=== PATIENT | male | born 1940 | race Caucasian/White ===

== ENCOUNTER → 2017-09-06 | Outpatient (CLI) | payer OTHER ==
[~2017-09-06] MED LIST: PROHANCE 279.3MG/ML 15ML VIAL (A9576) As Ordered ONE
[2017-09-06 14:21] LABS: BLOOD UREA NITROGEN 12 MG/DL (7-18); CREATININE FOR GFR 0.72 MG/DL (0.70-1.30); GLOMERULAR FILTRATION RATE > 60.0 (>42)
--- NOTE | 2017-09-06 16:05 | REP ---
MRI study of the brain and posterior fossa without and with IV gadolinium: History: Bilateral hearing loss, left greater than right. Gadolinium enhancement dose: 13 ml of intravenous ProHance. Technique: Axial and coronal imaging planes are utilized for T1 and T2-weighted scans. Sequences include spin-echo, fast spin echo, FLAIR, and diffusion weighted sequences. Coronal thin section axial and coronal pre- and postcontrast T1 and T2-weighted scans are included of the posterior fossa. MRI findings: There is no MR evidence of significant paranasal sinus disease. No intraorbital abnormality is observed. There is mild diffuse cerebral atrophy. There are scattered small vessel changes in the periventricular and subcortical white matter of the supratentorial brain. There is no evidence of intracranial hemorrhage, mass or infarction. Diffusion weighted scans show no evidence to suggest acute ischemia. Thin section axial T2-weighted scans demonstrate normal internal auditory canals bilaterally. No CP angle cistern mass lesion or other extra-axial mass lesion is seen. Seventh and eighth nerves in the IACs are seen and are unremarkable. Post contrast enhanced images show no evidence of abnormal intercanalicular or extra canalicular enhancement at either IAC. Enhancement is seen in normal vasculature. No abnormal intracranial enhancement is appreciated. Impression: Diffuse atrophy and mild small vessel changes. Otherwise negative MRI study of the brain and internal auditory canal posterior fossa. Signed by Piotr Oliver MD 09/07/2017 02:26 P
== END ==
LOC: M RAD 13:17
PROVIDERS: ATTEND Specialist
DX: H91.22 Sudden idiopathic hearing loss, left ear (principal)
CPT/HCPCS: 36415; 70553; 82565; 84520; A9576

== ENCOUNTER 2019-09-13 12:02 | Emergency (ER) | payer OTHER, MEDICARE ==
[~2019-09-13] VITALS: Ht 170.2 cm; Wt 42.5 kg
[2019-09-13] MEDS ORDERED: ACETAMINOPHEN TAB 650MG DOSE (2X325MG) PO ONE (12:15)
[2019-09-13] MEDS ORDERED: INCR1INH (12:16)
[2019-09-13] MEDS ORDERED: BREO1INH3 (12:16)
[2019-09-13] MEDS ORDERED: ALBU83IN (12:16)
[2019-09-13] MEDS ORDERED: LISI10TA4 (12:16)
--- NOTE | 2019-09-13 12:50 | REP ---
Five views lumbar spine: 09/13/2019. Indication: Low back pain. Comparison: None. Findings: There is no acute fracture, subluxation or dislocation. Levoscoliosis of the lumbar spine is present with the convexity centered at L1/L2. No lytic or blastic lesions are present. Bowel gas pattern is nonspecific. Impression: No acute osseous injuries of the lumbar spine. Electronically Signed by Quique Cloud DO 09/13/2019 12:41 P
--- NOTE | 2019-09-13 13:05 | REP ---
PELVIS AP: AP view of the pelvis is performed. There is no evidence of acute fracture, dislocation, or intrinsic bone disease. There are mild degenerative changes at the sacroiliac and hip joints bilaterally. IMPRESSION: No fracture or dislocation. Electronically Signed by Osmani Goyal MD 09/13/2019 01:47 P
[2019-09-13 13:43] VITALS: BP 129/76
== END 2019-09-13 14:08 | disposition home or self-care (01) ==
LOC: M ED 12:02
DX: S30.0XXA Contusion of lower back and pelvis, initial encounter (principal); W01.0XXA Fall on same level from slipping, tripping and stumbling without subsequent striking against object, initial encounter; Y92.9 Unspecified place or not applicable; Y93.9 Activity, unspecified; Z79.51 Long term (current) use of inhaled steroids; Z79.899 Other long term (current) drug therapy

== ENCOUNTER 2020-08-07 11:28 | Emergency (ER) | payer MEDICARE, OTHER ==
[~2020-08-07] VITALS: Ht 165.1 cm; Wt 61.7 kg
[~2020-08-07 11:28] MED LIST changes: +ALBU83IN NEB; +BREO1INH3; +INCR1INH INH; +LISI10TA4 PO; -PROHANCE 279.3MG/ML 15ML VIAL (A9576) As Ordered ONE
[2020-08-07] MEDS ORDERED: VITA50005 PO (11:49)
[2020-08-07] MEDS ORDERED: PRED10TA2 PO (11:49)
[2020-08-07] MEDS ORDERED: ADVA230A PO (11:49)
[2020-08-07 12:09] LABS: BASO # 0.1 10^3/uL (0.0-0.2); BASO % 0.4 % (0.0-1.0); HEMATOCRIT 45.7 % (42.0-52.0); HEMOGLOBIN 14.2 g/dl (13.5-17.5); LYMPH # 0.2 10^3/uL (1.5-5.0); LYMPH % 0.9 % (24.0-44.0); MEAN CORPUSCULAR HEMOGLOBIN 30.7 pg (27.0-33.0); MEAN CORPUSCULAR HGB CONC 31.1 g/dl (32.0-36.5); MEAN CORPUSCULAR VOLUME 98.7 fl (80.0-96.0); MONO # 0.9 10^3/uL (0.0-0.8); MONO % 4.2 % (0.0-5.0); NEUTROPHILS # 18.6 10^3/uL (1.5-8.5); NEUTROPHILS % 91.8 % (36.0-66.0); PLATELET COUNT, AUTOMATED 278 10^3/uL (150-450); RED BLOOD COUNT 4.63 10^6/uL (4.30-6.10); WHITE BLOOD COUNT 20.3 10^3/uL (4.0-10.0)
[2020-08-07 12:20] LABS: INR 0.92; PROTHROMBIN TIME 12.6 SECONDS (12.5-14.3)
[2020-08-07 12:21] LABS: PARTIAL THROMBOPLASTIN TIME 23.7 SECONDS (24.2-38.5)
[2020-08-07] MEDS ORDERED: APIXABAN 5 MG TAB (ELIQUIS) PO ONE (13:00)
--- NOTE | 2020-08-07 13:27 | REP ---
INDICATION: SOB. COMPARISON: Chest 11/14/2012, 02/16/2011 TECHNIQUE: AP seated chest FINDINGS: Two separate views to encompass the entirety of the chest utilized. The lungs are hyperinflated with diffuse underlying interstitial fibrotic change there is emphysematous change in the mid and upper lung zones but greatest in the left mid lung zone. There is irregular nodular scar in the left base in an area where there was an acute pneumonia on the 2013 exam. No interval studies available since that time. The pleural effusion and remainder of the infiltrate seen left lower lobe on the previous chest are resolved. Heart size borderline. The pulmonary arteries are prominent centrally consistent with pulmonary artery hypertension, presumably on the basis of COPD. There is pulmonary venous hypertension without darshan edema. Early interstitial edema is difficult to exclude in the setting of underlying fibrosis. The aorta is calcified at the arch and mildly tortuous. No free air under the diaphragm. Bones without acute finding. 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 There is irregular nodular lesion or scar adjacent to left heart border in area where there is extensive pneumonia in the left lower lobe in the 2013 exam. Effusion is resolved since that time as is most of the infiltrate appearance. Finding could represent scar or new lesion. Pulmonary artery hypertension, presumably on the basis of COPD. Borderline heart size. Pulmonary venous hypertension. No darshan edema. Interstitial edema difficult to exclude in the setting of fibrosis. <Electronically signed by Horacio Melendez > 08/07/20 [id number]
[2020-08-07 14:57] VITALS: BP 140/65
[2020-08-07] MEDS ORDERED: CART120C PO (15:49)
[2020-08-07] MEDS ORDERED: ELIQ5TAB PO (15:50)
[2020-08-07 16:14] VITALS: BP 121/73
[2020-08-08] MEDS ORDERED: CART120C PO (17:18)
[2020-08-08] MEDS ORDERED: ELIQ5TAB PO (17:18)
--- NOTE | 2020-08-09 05:09 | ECGEPIP ---
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
--- NOTE | 2020-08-09 05:11 | ECGEPIP ---
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
== END 2020-08-07 16:30 | disposition home or self-care (01) ==
LOC: M ED 11:28
DX: I48.91 Unspecified atrial fibrillation (principal); I10 Essential (primary) hypertension; J44.9 Chronic obstructive pulmonary disease, unspecified; Z79.899 Other long term (current) drug therapy; Z79.01 Long term (current) use of anticoagulants; Z87.891 Personal history of nicotine dependence

== ENCOUNTER 2020-08-08 14:55 | Inpatient (IN) | payer MEDICARE ==
[~2020-08-08] VITALS: Ht 165.1 cm; Wt 59.2 kg
[~2020-08-08 14:55] MED LIST changes: +ADVA230A PO; +CART120C PO; +ELIQ5TAB PO; +PRED10TA2 PO; +VITA50005 PO
[2020-08-08] MEDS ORDERED: methylPREDNISolone 125MG 2ML VIAL IV ONE (15:15)
--- NOTE | 2020-08-08 15:51 | REP ---
INDICATION: increased SOB. COMPARISON: Comparison chest x-ray August 07, 2020.. TECHNIQUE: Upright AP chest x-ray. FINDINGS: There is subtle asymmetric density in the right upper lobe distribution consistent with right upper lobe. Pneumonia early infiltrate there increased markings in the left base which improved the 09/14/2020 study. Pulmonary vasculature is cephalized. Heart size is borderline. IMPRESSION: New infiltrate right upper lobe distribution. Increased markings left base are somewhat improved from August 07, 2020. Borderline heart size and cephalization vasculature. <Electronically signed by Juancarlos Oliver > 08/08/20 [id number]
[2020-08-08 16:24] LABS: BASO # 0.1 10^3/uL (0.0-0.2); BASO % 0.4 % (0.0-1.0); HEMATOCRIT 40.7 % (42.0-52.0); HEMOGLOBIN 12.7 g/dl (13.5-17.5); LYMPH # 0.1 10^3/uL (1.5-5.0); LYMPH % 0.7 % (24.0-44.0); MEAN CORPUSCULAR HEMOGLOBIN 30.7 pg (27.0-33.0); MEAN CORPUSCULAR HGB CONC 31.2 g/dl (32.0-36.5); MEAN CORPUSCULAR VOLUME 98.3 fl (80.0-96.0); MONO # 0.4 10^3/uL (0.0-0.8); MONO % 2.2 % (0.0-5.0); NEUTROPHILS # 15.6 10^3/uL (1.5-8.5); NEUTROPHILS % 94.2 % (36.0-66.0); PLATELET COUNT, AUTOMATED 255 10^3/uL (150-450); RED BLOOD COUNT 4.14 10^6/uL (4.30-6.10); WHITE BLOOD COUNT 16.6 10^3/uL (4.0-10.0)
[2020-08-08] MEDS: COMBIVENT RESPIMAT 100-20MCG INHALER 4GM INH SCH ×3 (16:54→17:19)
[2020-08-08] MEDS ORDERED: CART120C PO (17:18)
[2020-08-08] MEDS ORDERED: ELIQ5TAB PO (17:18)
[2020-08-08] MEDS ORDERED: LEVALBUTEROL 1.25 MG/0.5 ML CONCENTRATE NEB INH PRN (19:00)
[2020-08-08] MEDS: ADVAIR HFA 230/21MCG INHALER INH SCH (20:00)
[2020-08-08] MEDS: LEVALBUTEROL 1.25 MG/0.5 ML CONCENTRATE NEB INH SCH (20:00)
[2020-08-08 20:32] LABS: CK-MB VALUE MASS 1.8 NG/ML (<3.6); CPK CREATINE PHOSPHOKINASE 42 U/L (39-308); MB/CK RELATIVE INDEX 4.29 (< OR =4); NT-PRO BNP 326 PG/ML (<450); TROPONIN I < 0.02 NG/ML (< 0.10)
--- NOTE | 2020-08-08 20:41 | HPEPDOC ---
[facility] Medical History & Physical Date of Admission Aug 08, 2020 Date of Service: Aug 08, 2020 History and Physical CHIEF COMPLAINT: Shortness of breath, cough x 1-2 weeks HISTORY OF PRESENT ILLNESS: 80-year-old with COPD, chronic hypoxic respiratory failure on 2 L home oxygen by nasal cannula presented with shortness of breath and nonproductive cough on and off for the past 1-2 wks,without fever, chills, chest pain, tightness, dizziness, lightheadedness, brbpr,hematemesis, black tarry stools, or sick contacts. He is usually able to walk 20-30 feet, now unable to go 10 feet due to DA SILVA despite useing his advair and incruse ellipta, and increasing his oxygen to 2.5 liters, and decreasing it back to 2liters when he rests and catches his breath. He denies any weight gain, and may have lost a few pounds,and also denies PND or orthopnea without any prior history of CAD/OK/CHF in the past. He was seen in the ER on 08/07/2020 and was found to have new atrial fibrillation with rapid ventricular rate of 104, patient was discharged from the emergency room with Delfino and Sharon . He now presents again with persistent wheezing and shortness of breath, cough productive of white sputum with low grade temp 100.Chest x-ray shows no acute infiltrate, but vascular cephalization. ABG shows acute on chronic respiratory acidosis, pH of 7.3, PCO2 57, hospitalist was asked to admit for acute COPD exacerbation per Dr. Alejandro's recommendations. He remains in Afib but rate controlled at 94. PAST MEDICAL HISTORY: . Hypertension, new atrial fibrillation, COPD, chronic hypoxic respiratory failure in 2 L of oxygen PAST SURGICAL HISTORY: , Hernia repair, hemorrhoidectomy SOCIAL HISTORY: , Retired, former smoker,1ppd x 30 years, worked in [employer]. hcp dnr dni emergency contact [phone] denies alcohol abuse or recreational drug use FAMILY HISTORY: father age 76 "chest" cancer mother age 94 heart problems ALLERGIES: Please see below. REVIEW OF SYSTEMS: 10 point review of systems negative aside from positive findings on history of present illness HOME MEDICATIONS: Please see below. PHYSICAL EXAMINATION: VITAL SIGNS: See below GENERAL APPEARANCE: No acute respiratory distress. No conversational dyspnea, or use of respiratory accessory muscles. No tripod positioning. No pallor, no icterus or jaundice. Able to speak in full sentences HEENT: Pupils equally round, reactive to light and accommodation. Extra muscles are intact. Normocephalic, atraumatic. No jugular venous distention. No thyromegaly or cervical lymphadenopathy. Moist mucous membranes. Face is symmetric. Tongue is midline. No pharyngeal erythema or tonsillar exudates. no stridor. no tracheal deviation CARDIOVASCULAR: S1, S2, irregularly irregular. Nondisplaced point of maximal impulse LUNGS: Diminished breath sounds. Air entry is equal bilaterally. Prolonged expirations, bilateral wheezing ABDOMEN: Soft, nontender, nondistended, positive bowel sounds in 4 quadrants. No hepatosplenomegaly. No abdominal bruit. No fluid wave. No CVA tenderness EXTREMITIES: No cyanosis, clubbing or pitting edema LABORATORY DATA: See below. IMAGING: Upright AP chest x-ray. FINDINGS: There is subtle asymmetric density in the right upper lobe distribution consistent with right upper lobe. Pneumonia early infiltrate there increased markings in the left base which improved the 09/14/2020 study. Pulmonary vasculature is cephalized. Heart size is borderline. IMPRESSION: New infiltrate right upper lobe distribution. Increased markings left base are somewhat improved from August 07, 2020. Borderline heart size and cephalization vasculature. <Electronically signed by Juancarlos Oliver > 08/08/20 154 DD: Piotr Oliver MD 08/08/20 154 DT: JAIME 08/08/201546 MICROBIOLOGY: Please see below. ASSESSMENT/PLAN: 80-year-old with COPD, chronic hypoxic respiratory failure on 2 L home oxygen by nasal cannula presented with shortness of breath and nonproductive cough on and off for the past 1-2 wks,without fever, chills, chest pain, tightness, dizziness, lightheadedness, brbpr,hematemesis, black tarry stools, or sick contacts. He is usually able to walk 20-30 feet, now unable to go 10 feet due to DA SILVA despite useing his advair and incruse ellipta, and increasing his oxygen to 2.5 liters, and decreasing it back to 2liters when he rests and catches his breath. He denies any weight gain, and may have lost a few pounds,and also denies PND or orthopnea without any prior history of CAD/OK/CHF in the past. He was seen in the ER on 08/07/2020 and was found to have new atrial fibrillation with rapid ventricular rate of 104, patient was discharged from the emergency room with Eliquis and Cardizem . He now presents again with persistent wheezing and shortness of breath, cough productive of white sputum with low grade temp 100.Chest x-ray shows no acute infiltrate, but vascular cephalization. ABG shows acute on chronic respiratory acidosis, pH of 7.3, PCO2 57, hospitalist was asked to admit for acute COPD exacerbation per Dr. Alejandro's recommendations. He remains in Afib but rate controlled at 94. He will be admitted as an inpatient for two midnights. Acute COPD exacerbation -Patient will be admitted to medical surgical floor telemetry. Cardiac markers will be cycled every 6 hourly. EKG shows atrial fibrillation but rate controlled. He has been given Solu-Medrol 125 mg intravenously in the emergency room. We'll continue with Solu-Medrol every 6 hourly. Doxycycline 100 every 12 hourly due to history of atrial fibrillation. Albuterol will not be resumed. Patient will be placed on Xopenex to decrease risk of tachycardia. Chest x-ray shows no acute infiltrate Acute on Chronic hypoxic respiratory failure. 2 L oxygen dependent by nasal cannula -Due to acute COPD exacerbation as well as fluid overload with chest x-ray showing cephalization. Continuous supplemental oxygen. Titrate if needed to continue with that goal saturation of 80-92%. Gentle diuresis and continue with Solu-Medrol, antibiotics and nebulizer treatments for COPD exacerbation Chronic hypercarbia/acute on chronic respiratory acidosis -No acute indication for BiPAP. . Continue with treatment for COPD exacerbation and gentle diuresis. No confusion Will monitor from lethargy. If patient develops acute mental status changes. We will recheck arterial blood gas to rule out worsening respiratory acidosis Remote history of tobacco abuse -Quit tobacco abuse New onset atrial fibrillation, rate controlled -Continue with L Aquinas and Cardizem -echo ordered Abnormal CXR -cephalization, with possible new onset chf. clinical exam was not impressive and had no jvd, rales, or LE edema. trial of lasix x 1 dose. check echo and bnp. Diet 2 g sodium diet CODE STATUS DNR DNI MOLST SIGNED. [facility] [id number] DVT prophylaxis on Eliquis Vital Signs Vital Signs Date Time Temp Pulse Resp B/P (MAP) Pulse Ox O2 Delivery O2 Flow Rate FiO2 08/08/20 16:49 Nasal Cannula 2.0 08/08/20 16:49 08/08/20 14:55 97.3 94 28 92 Laboratory Data Labs 24H Laboratory Tests 2 08/08/20 15:30: POC pH (Misc Panel) 7.387, POC Base Excess (Misc Panel) 7.0H, POC Saturated Percent O2 (Misc) 98, POC pO2 (Misc Panel) 109.0H, POC pCO2 (Misc Panel) 53.4H, POC HCO3 (Misc Panel) 32.1H, POC Total CO2 (Misc Panel) 34.0H 08/08/20 16:10: Immature Granulocyte % (Auto) 2.5, Neutrophils (%) (Auto) 94.2H, Lymphocytes (%) (Auto) 0.7L, Monocytes (%) (Auto) 2.2, Eosinophils (%) (Auto) 0.0, Basophils (%) (Auto) 0.4, Neutrophils # (Auto) 15.6H, Lymphocytes # (Auto) 0.1L, Monocytes # (Auto) 0.4, Eosinophils # (Auto) 0.0, Basophils # (Auto) 0.1, Nucleated Red Blood Cells % (auto) 0.0 CBC/BMP Laboratory Tests 08/08/20 16:10 Microbiology Microbiology 08/08/20 Respiratory Virus Panel (PCR) (JOCELYNE) - Final, Complete 08/08/20 Blood Culture, Received Pending 08/08/20 Blood Culture, Received Pending Home Medications Scheduled Apixaban (Eliquis) 5 Mg Tablet, 5 MG PO BID Diltiazem HCl (Cartia Xt) 120 Mg Cap.er.24h, 120 MG PO DAILY Ergocalciferol (Vitamin D2) (Vitamin D2) 50,000 Units Cap, 1 CAP PO 1XWK WEDNESDAYS Fluticasone Propion/Salmeterol (Advair Hfa 230-21 Mcg Inhaler) 12 Gm Hfa.aer.ad, 2 PUFFS PO BID Lisinopril (Lisinopril) 10 Mg Tablet, 10 MG PO DAILY Prednisone (Prednisone) 10 Mg Tablet, 10 MG PO DAILY Umeclidinium [place] (Incruse Ellipta) 62.5 Mcg Blst.w.dev, 1 PUFF INH DAILY Scheduled PRN Albuterol Sulf (Albuterol Sulfate) 2.5 Mg/3 Ml Vial.neb, 1 VIAL NEB Q4H PRN for SOB/WHEEZING Allergies Coded Allergies: No Known Allergies (Unverified , 09/13/19) A-FIB/CHADSVASC A-FIB History Current/History of A-Fib/PAF?: Yes Current PO Anticoag Therapy: Yes Age/Risk Factor Scoring CHADSVASC: CHADSVASC Response (Comments) Value Gender Risk Factor Male 0 Hx of CHF No 0 Hx of HTN Yes 1 Hx of Stroke/TIA/or VTE No 0 Hx of Diabetes No 0 Hx of Vascular Disease No 0 Total 1 Treatment Treatment ordered: Apixaban BELLE DACOSTA MD Aug 08, 2020 19:25
[2020-08-08] MEDS ORDERED: FUROSEMIDE 40MG/4ML VIAL (J1940) IV ONE (20:45)
[2020-08-08] MEDS: DOXYCYCLINE HYCLATE 100 MG in D5W MINI-BAG PLUS 100 ML IV SCH (22:52)
[2020-08-08] MEDS: APIXABAN 5 MG TAB (ELIQUIS) PO SCH (22:52)
[2020-08-09 01:01] VITALS: BP 138/60
[2020-08-09] MEDS: LEVALBUTEROL 1.25 MG/0.5 ML CONCENTRATE NEB INH SCH ×5 (03:25→15:08)
--- NOTE | 2020-08-09 05:11 | ECGEPIP ---
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
[2020-08-09 06:00] VITALS: BP 124/80
[2020-08-09 07:23] LABS: BASO % 0.2 % (0.0-1.0); HEMATOCRIT 40.2 % (42.0-52.0); HEMOGLOBIN 12.8 g/dl (13.5-17.5); LYMPH # 0.1 10^3/uL (1.5-5.0); LYMPH % 1.3 % (24.0-44.0); MEAN CORPUSCULAR HEMOGLOBIN 31.4 pg (27.0-33.0); MEAN CORPUSCULAR HGB CONC 31.8 g/dl (32.0-36.5); MEAN CORPUSCULAR VOLUME 98.5 fl (80.0-96.0); MONO # 0.3 10^3/uL (0.0-0.8); MONO % 2.3 % (0.0-5.0); NEUTROPHILS # 10.3 10^3/uL (1.5-8.5); NEUTROPHILS % 93.9 % (36.0-66.0); PLATELET COUNT, AUTOMATED 238 10^3/uL (150-450); RED BLOOD COUNT 4.08 10^6/uL (4.30-6.10); WHITE BLOOD COUNT 10.9 10^3/uL (4.0-10.0)
[2020-08-09] MEDS: ADVAIR HFA 230/21MCG INHALER INH SCH (07:34)
[2020-08-09 07:35] LABS: BLOOD UREA NITROGEN 29 MG/DL (7-18); CALCIUM LEVEL 8.3 MG/DL (8.8-10.2); CARBON DIOXIDE LEVEL 36 MEQ/L (21-32); CHLORIDE LEVEL 99 MEQ/L (98-107); CREATININE FOR GFR 0.71 MG/DL (0.70-1.30); GLOMERULAR FILTRATION RATE > 60.0 (>42); GLUCOSE, FASTING 119 MG/DL (70-100); MAGNESIUM LEVEL 2.1 MG/DL (1.8-2.4); POTASSIUM SERUM 4.3 MEQ/L (3.5-5.1); SODIUM LEVEL 141 MEQ/L (136-145)
[2020-08-09] MEDS: DOXYCYCLINE HYCLATE 100 MG in D5W MINI-BAG PLUS 100 ML IV SCH (08:42)
[2020-08-09] MEDS: APIXABAN 5 MG TAB (ELIQUIS) PO SCH (08:42)
[2020-08-09 08:45] VITALS: BP 120/63
[2020-08-09] MEDS ORDERED: lisinopriL 10 MG TAB PO SCH (09:00)
[2020-08-09] MEDS ORDERED: DOXY-350 PO (12:40)
[2020-08-09] MEDS ORDERED: PRED20TA PO (12:40)
--- NOTE | 2020-08-09 12:57 | DS.PDOC ---
Discharge Summary General Date of Admission Aug 08, 2020 at 19:07 Date of Discharge 08/09/2019 Discharge Summary PROCEDURES PERFORMED DURING STAY: [None]. ADMITTING DIAGNOSES: 1. Acute COPD exacerbation 2. Acute on chronic hypoxic respiratory failure 3. Acute on chronic respiratory acidosis 4. Smoker 5. New onset atrial fibrillation, rate controlled DISCHARGE DIAGNOSES: 1. Acute COPD exacerbation 2. Acute on chronic hypoxic respiratory failure 3. Acute on chronic respiratory acidosis 4. Smoker 5. New onset atrial fibrillation, rate controlled 6. Community acquired pneumonia COMPLICATIONS/CHIEF COMPLAINT: Copd With Acute Exacerbation. HISTORY OF PRESENT ILLNESS: 80-year-old with COPD, chronic hypoxic respiratory failure on 2 L home oxygen by nasal cannula presented with shortness of breath and nonproductive cough on and off for the past 1-2 wks,without fever, chills, chest pain, tightness, dizziness, lightheadedness, brbpr,hematemesis, black tarry stools, or sick contacts. He is usually able to walk 20-30 feet, now unable to go 10 feet due to DA SILVA despite useing his advair and incruse ellipta, and increasing his oxygen to 2.5 liters, and decreasing it back to 2liters when he rests and catches his breath. He denies any weight gain, and may have lost a few pounds,and also denies PND or orthopnea without any prior history of CAD/[place]/CHF in the past. He was seen in the ER on 08/07/2020 and was found to have new atrial fibrillation with rapid ventricular rate of 104, patient was discharged from the emergency room with Eliquis and Cardizem . He now presents again with persistent wheezing and shortness of breath, cough productive of white sputum with low grade temp 100.Chest x-ray shows no acute infiltrate, but vascular cephalization. ABG shows acute on chronic respiratory acidosis, pH of 7.3, PCO2 57, hospitalist was asked to admit for acute COPD exacerbation per Dr. Alejandro's recommendations. He remains in Afib but rate controlled at 94. HOSPITAL COURSE: Patient was admitted for event of acute COPD exacerbation. He was given Solu-Medrol 80 mg every 6 hours as well as doxycycline 100 mg every 12 hours. He was given Xopenex to decrease risk of tachycardia. Chest x-ray showed showed a subtle right upper lobe infiltrate, as well as possibly increased vascular markings, and therefore was given one dose of Lasix 40 mg IV. Patient's BNP was within normal limits. He had no signs of fluid overload on physical examination. Blood cultures preliminary negative. Patient was resumed on his home oxygen of 2 L, saturated above 92%. Although EKG showed atrial fibrillation he was rate controlled with Cardizem. Echocardiogram was performed. Results will follow up as outpatient. On, discharge he was not dyspneic or tachypneic. He was instructed to complete a course of doxycycline as well as prednisone 40 mg for 7 days. He was instructed to follow up with his primary care doctor within 3-5 days. DISCHARGE MEDICATIONS: Please see below. ALLERGIES: Please see below. PHYSICAL EXAMINATION ON DISCHARGE: VITAL SIGNS: please see below General: NAD, comfortable HEENT: PERRLA, EOMI, sclerae clear, nasal cannula in place Neck: supple, normal ROM, no JVD Respiratory: lungs CTAB, reduced air entry bilaterally, no wheeze, no rales, no crackles CVS: RRR, normal S1, S2, no murmurs Abdo: soft, no masses, no hepatosplenomegaly, BS+, no rebound tenderness Extremities: no edema, pulses 2+ MSK: no joint deformities, normal ROM Neuro: no focal neuro deficits, moving all 4 extremities, CN2-12 intact. Strength 5/5 in all 4 extremities. No nystagmus. Psych: calm, cooperative, AAO x 3 LABORATORY DATA: Please see below. IMAGING: CXR 08/08/20 New infiltrate right upper lobe distribution. Increased markings left base are somewhat improved from August 07, 2020. Borderline heart size and cephalization vasculature. PROGNOSIS: good ACTIVITY: [As tolerated]. DIET: 2g Na DISCHARGE PLAN: Exertional with home oxygen. PCP and pulmonology follow-up. Complete course of prednisone 40 mg for 7 days thereafter, resume 10 mg by mouth daily. Complete course of doxycycline for 7 days. DISCHARGE INSTRUCTIONS: Issues instructions. ITEMS TO FOLLOWUP ON ON OUTPATIENT: Final blood cultures from 08/08/20 DISCHARGE CONDITION: [Stable]. TIME SPENT ON DISCHARGE: 35 minutes Vital Signs/I&Os Vital Signs Date Time Temp Pulse Resp B/P (MAP) Pulse Ox O2 Delivery O2 Flow Rate FiO2 08/09/20 08:50 2.0 08/09/20 08:46 74 08/09/20 08:45 120/63 11/14/20 06:00 97.0 20 93 Nasal Cannula I&O- Last 24 Hours up to 6 AM 08/09/20 06:00 Intake Total 100 ml Output Total 550 ml Balance -450 ml Laboratory Data Labs 24H Laboratory Tests 2 08/08/20 15:30: POC pH (Misc Panel) 7.387, POC Base Excess (Misc Panel) 7.0H, POC Saturated Percent O2 (Misc) 98, POC pO2 (Misc Panel) 109.0H, POC pCO2 (Misc Panel) 53.4H, POC HCO3 (Misc Panel) 32.1H, POC Total CO2 (Misc Panel) 34.0H 08/08/20 16:10: Immature Granulocyte % (Auto) 2.5, Neutrophils (%) (Auto) 94.2H, Lymphocytes (%) (Auto) 0.7L, Monocytes (%) (Auto) 2.2, Eosinophils (%) (Auto) 0.0, Basophils (%) (Auto) 0.4, Neutrophils # (Auto) 15.6H, Lymphocytes # (Auto) 0.1L, Monocytes # (Auto) 0.4, Eosinophils # (Auto) 0.0, Basophils # (Auto) 0.1, Nucleated Red Blood Cells % (auto) 0.0 08/08/20 19:52: Total Creatine Kinase 42, Creatine Kinase MB 1.8, Creatine Kinase MB Relative Index 4.29H, Troponin I < 0.02, ZJ-Ddy-Z-Type Natriuretic Peptide 326 08/09/20 06:42: Immature Granulocyte % (Auto) 2.3, Neutrophils (%) (Auto) 93.9H, Lymphocytes (%) (Auto) 1.3L, Monocytes (%) (Auto) 2.3, Eosinophils (%) (Auto) 0.0, Basophils (%) (Auto) 0.2, Neutrophils # (Auto) 10.3H, Lymphocytes # (Auto) 0.1L, Monocytes # (Auto) 0.3, Eosinophils # (Auto) 0.0, Basophils # (Auto) 0.0, Nucleated Red Blood Cells % (auto) 0.0, Anion Gap 6L, Glomerular Filtration Rate > 60.0, Calcium Level 8.3L, Magnesium Level 2.1 CBC/BMP Laboratory Tests 08/08/20 16:10 08/09/20 06:42 Microbiology Microbiology 08/08/20 Respiratory Virus Panel (PCR) (JOCELYNE) - Final, Complete 08/08/20 Blood Culture, Received Pending 08/08/20 Blood Culture, Received Pending Discharge Medications Scheduled Apixaban (Eliquis) 5 Mg Tablet, 5 MG PO BID, (Reported) Diltiazem HCl (Cartia Xt) 120 Mg Cap.er.24h, 120 MG PO DAILY, (Reported) Doxycycline Monohydrate (Doxycycline) 100 Mg Capsule, 100 MG PO BID Ergocalciferol (Vitamin D2) (Vitamin D2) 50,000 Units Cap, 1 CAP PO 1XWK, (Reported) WEDNESDAYS Fluticasone Propion/Salmeterol (Advair Hfa 230-21 Mcg Inhaler) 12 Gm Hfa.aer.ad, 2 PUFFS PO BID, (Reported) Lisinopril (Lisinopril) 10 Mg Tablet, 10 MG PO DAILY, (Reported) Prednisone (Prednisone) 10 Mg Tablet, 10 MG PO DAILY, (Reported) Prednisone (Prednisone) 20 Mg Tablet, 40 MG PO DAILY Umeclidinium [place] (Incruse Ellipta) 62.5 Mcg Blst.w.dev, 1 PUFF INH DAILY, ( Reported) Scheduled PRN Albuterol Sulf (Albuterol Sulfate) 2.5 Mg/3 Ml Vial.neb, 1 VIAL NEB Q4H PRN for SOB/WHEEZING, (Reported) Allergies Coded Allergies: No Known Allergies (Unverified , 09/13/19) ANAIS FLOWERS MD Aug 09, 2020 12:57
[2020-08-09 14:31] VITALS: BP 115/50
[2020-08-09] MEDS ORDERED: methylPREDNISolone 125MG 2ML VIAL IV SCH (18:00)
--- NOTE | 2020-08-11 12:16 | ECHO ---
DATE OF PROCEDURE: 08/09/2020 Age: 80 Gender: Male Height: 162 cm Weight: 59 kg REFERRING PHYSICIAN: Dr. Fierro INDICATION: Dyspnea, atrial fibrillation, COPD. MEASUREMENTS: Aorta 3.1 LA 3.4 RV 2.2 IVS 0.8 LV 4.8 LVPW 0.8 IVC 1.5 Mitral E wave velocity 80, A wave 45 E prime septal 7.7 E prime lateral 14.3 FINDINGS: The study is of acceptable technical quality. The patient is in sinus rhythm with frequent ectopic beats. Left ventricle is normal size and normal systolic function, estimated ejection fraction approximately 60% to 65%. I do not appreciate any segmental wall motion abnormalities. Right ventricle also normal size and systolic function. Both atria appear at least mildly enlarged. Aortic valve is tricuspid and has preserved mobility. Mitral and tricuspid valves also appear normal. Pulmonic valve was not well visualized. No pericardial effusion is present. Inferior vena cava is normal size and appropriately collapses with inspiration indicative of normal central venous pressure. Aortic root is normal. Aortic arch and abdominal aorta were not well seen. Doppler interrogation reveals competent aortic valve, trace mitral insufficiency and mild tricuspid insufficiency. Calculated pulmonary artery pressure is in the low 40s corresponding to moderate pulmonary hypertension. Mitral inflow pattern and tissue Doppler imaging of mitral annulus revealed likely normal diastolic dysfunction. CONCLUSIONS: 1. Study is of acceptable technical quality, underlying sinus rhythm with frequent ectopic beats. 2. Normal LV size with normal LV systolic and diastolic function. 3. No hemodynamically significant valvular disease. 4. Likely normal central venous pressure but moderate pulmonary hypertension. MTDD
== END 2020-08-09 19:05 | disposition home or self-care (01) | DRG 190 ==
LOC: M ED 14:55 → M ED INP 19:07 → ENRESERV 22:40 → M MSPAV 08-09 01:00
PROVIDERS: ADMIT General Practice; ATTEND Family Medicine
DX: J44.0 Chronic obstructive pulmonary disease with (acute) lower respiratory infection (principal); J96.21 Acute and chronic respiratory failure with hypoxia; J18.9 Pneumonia, unspecified organism; E87.2 Acidosis; I48.91 Unspecified atrial fibrillation; J44.1 Chronic obstructive pulmonary disease with (acute) exacerbation; Z99.81 Dependence on supplemental oxygen; Z87.891 Personal history of nicotine dependence; Z20.828 Contact with and (suspected) exposure to other viral communicable diseases; Z79.01 Long term (current) use of anticoagulants; Z79.52 Long term (current) use of systemic steroids; Z79.899 Other long term (current) drug therapy

== ENCOUNTER 2020-09-29 16:50 | Inpatient (IN) | payer MEDICARE ==
[~2020-09-29] VITALS: Ht 165.1 cm; Wt 57.5 kg
[~2020-09-29 16:50] MED LIST changes: +DOXY-350 PO; +PRED20TA PO
[2020-09-29] MEDS ORDERED: PRED10PA PO (17:27)
[2020-09-29] MEDS ORDERED: COMBIVENT RESPIMAT 100-20MCG INHALER 4GM INH ONE (18:00)
[2020-09-29 18:18] LABS: ABG pH (ARTERIAL) 7.486 UNITS (7.350-7.450)
[2020-09-29 18:19] LABS: ABG BASE EXCESS 10.2 (-2.0-2.0); ABG HCO3 34.8 MEQ/L (22.0-26.0); ABG PARTIAL PRESSURE CO2 47.2 mmHg (35.0-45.0); ABG PARTIAL PRESSURE O2 104.2 mmHg (75.0-100.0); ABG TOTAL CO2 36.3 MEQ/L (23.0-31.0)
[2020-09-29 18:29] LABS: BASO % 0.6 % (0.0-1.0); HEMATOCRIT 34.1 % (42.0-52.0); HEMOGLOBIN 10.6 g/dl (13.5-17.5); LYMPH # 0.1 10^3/uL (1.5-5.0); MEAN CORPUSCULAR HEMOGLOBIN 30.5 pg (27.0-33.0); MEAN CORPUSCULAR HGB CONC 31.1 g/dl (32.0-36.5); MONO # 0.4 10^3/uL (0.0-0.8); MONO % 6.3 % (0.0-5.0); NEUTROPHILS # 5.9 10^3/uL (1.5-8.5); NEUTROPHILS % 86.4 % (36.0-66.0); PLATELET COUNT, AUTOMATED 245 10^3/uL (150-450); RED BLOOD COUNT 3.48 10^6/uL (4.30-6.10); WHITE BLOOD COUNT 6.8 10^3/uL (4.0-10.0)
[2020-09-29 18:54] LABS: INR 1.3; PROTHROMBIN TIME 16.5 SECONDS (12.5-14.3)
[2020-09-29 18:55] LABS: PARTIAL THROMBOPLASTIN TIME 30.1 SECONDS (24.2-38.5)
[2020-09-29 18:58] LABS: ALBUMIN 2.7 GM/DL (3.2-5.2); ALT/SGPT 37 U/L (12-78); BILIRUBIN,DIRECT 0.2 MG/DL (0.0-0.2); BILIRUBIN,TOTAL 0.5 MG/DL (0.2-1.0); BLOOD UREA NITROGEN 32 MG/DL (7-18); CALCIUM LEVEL 8.7 MG/DL (8.8-10.2); CARBON DIOXIDE LEVEL 39 MEQ/L (21-32); CHLORIDE LEVEL 93 MEQ/L (98-107); CK-MB VALUE MASS 1.2 NG/ML (<3.6); CPK CREATINE PHOSPHOKINASE 26 U/L (39-308); CREATININE FOR GFR 0.96 MG/DL (0.70-1.30); FREE T4 1.32 NG/DL (0.76-1.46); GLOMERULAR FILTRATION RATE > 60.0 (>42); GLUCOSE, FASTING 122 MG/DL (70-100); MB/CK RELATIVE INDEX 4.62 (< OR =4); NT-PRO BNP 779 PG/ML (<450); POTASSIUM SERUM 4.1 MEQ/L (3.5-5.1); SODIUM LEVEL 135 MEQ/L (136-145); THYROID STIMULATING HORMONE 0.229 uIU/ML (0.358-3.740); TOTAL PROTEIN 6.1 GM/DL (6.4-8.2); TROPONIN I < 0.02 NG/ML (< 0.10)
[2020-09-29] MEDS ORDERED: IPRATROPIUM 0.5MG/ALBUTEROL 2.5MG INH SOL UD 3ML (DUONEB) NEB ONE ×2 (19:30→21:15)
--- NOTE | 2020-09-29 20:05 | REP ---
INDICATION: SOB. COMPARISON: 08/08/2020 TECHNIQUE: PA and lateral views FINDINGS: Once again, the lung wilson are hyperexpanded. Fibrotic changes are seen throughout the lung wilson status quo. No acute patchy parenchymal opacities or pleural effusions have developed. IMPRESSION: Stable appearing chronic changes without evidence of acute cardiopulmonary disease. Correlate clinically to rule out the possibility of acute disease superimposed upon chronic change. <Electronically signed by Vikram Huang > 09/29/202000
[2020-09-29] MEDS ORDERED: FURO40TA2 PO (22:37)
[2020-09-29] MEDS ORDERED: VITA50005 PO (22:37)
[2020-09-29] MEDS ORDERED: NYST50SS SSP (22:37)
[2020-09-29] MEDS ORDERED: POTA10TA16 PO (22:37)
[2020-09-29] MEDS ORDERED: PRED10TA2 PO (22:37)
[2020-09-29] MEDS ORDERED: DILT240C83 PO (22:37)
--- NOTE | 2020-09-29 23:54 | HPEPDOC ---
[facility] Medical History & Physical Date of Admission Sep 29, 2020 Date of Service: Sep 29, 2020 History and Physical CHIEF COMPLAINT: Shortness of breath HISTORY OF PRESENT ILLNESS: 80-year-old male history of COPD and A. fib who was sent to the emergency department by his home extension agent Dr. Alejandro after being found to be desaturating to the 80s in the clinic during his visit today. Patient has COPD and is on baseline 2 L of oxygen at home and had to be increased to [address] Alejandro in the clinic and saturated to around 85%. In the emergency department patient received nebulized treatments with improvement in his wheezing and relief reported by the patient for shortness of breath he is saturating at the time he was seen at 92% on 2 L of oxygen. When I saw the patient in the emergency department he tells me he is feeling much better and is no longer short of breath and wheezing is minimal. Patient agrees to be admitted to the hospital for management of his COPD exacerbation. In the emergency department patient was found to have A. fib with a rapid response heart rate between 100 -120 but at times reaching higher. Patient unsure if he is compliant fully with medications at home. He lives home with his . Patient will be admitted to medical floor with telemetry monitoring for his A. fib. Patient denies any chest pain or palpitations he denies abdominal pain denies currently having shortness of breat h. PAST MEDICAL HISTORY: COPD with chronic hypoxic respiratory failure on 2 L oxygen at home Atrial fibrillation Hypertension PAST SURGICAL HISTORY: Hemorrhoidectomy Hernia repair SOCIAL HISTORY: Denies alcohol use Denies tobacco use actively tells me he quit 20 years ago but has a [id number]-dctp history Denies illicit drug use His is his healthcare proxy [phone] patient reinforces his DNR/DNI status FAMILY HISTORY: Reviewed and none contributory to this admission ALLERGIES: Please see below. REVIEW OF SYSTEMS: 10 point review of systems complete all negative otherwise stated in HPI HOME MEDICATIONS: Please see below. PHYSICAL EXAMINATION: Constitutional: Awake and alert, in no apparent distress ENT: Sclera are clear Respiratory: Lungs show diffuse mild wheezing bilaterally with diminished lung sounds. No respiratory distress. No use of accessory muscles. On 2 L of oxygen by [place] Cardiovascular: Irregular heart rate. Tachycardia. Cannot appreciate murmurs. Gastrointestinal: Abdomen is soft, non distended, non tender, BS present. Musculoskeletal: No lower extremity edema. Neurologic: No focal neurological deficit. Mental Status: A&O x3, normal affect Skin: Warm, dry LABORATORY DATA: See below. IMAGING: See chart MICROBIOLOGY: Please see below. ASSESSMENT/PLAN 80-year-old male history of COPD and A. fib who was sent to the emergency department by his home extension agent Dr. Alejandro after being found to be desaturating to the 80s in the clinic during his visit today. Admitted for management of acute on chronic COPD exacerbation and atrial fibrillation with RVR. # Acute on chronic hypoxic respiratory failure secondary to COPD exacerbation: DuoNeb's scheduled and when necessary. Continue home prednisone 10 mg daily, clinically improved with minimal wheezing and back to 2 L of oxygen will hold off on extra steroids for now. Titrate oxygen with goal of 88-92%. # Atrial fibrillation with RVR: Currently heart rate 102. questionable compliance with medications. Continue home Cardizem and eliquis. Monitor on telemetry. # Hypertension: Currently normotensive hold home meds. Monitor and titrate # DVT prophylaxis: fred Shirley Hospitalist Vital Signs Vital Signs Date Time Temp Pulse Resp B/P (MAP) Pulse Ox O2 Delivery O2 Flow Rate FiO2 09/29/20 22:17 145 111/56 09/29/20 21:28 98.1 09/29/20 21:15 18 97 Nasal Cannula 2.0 Laboratory Data Labs 24H Laboratory Tests 2 09/29/20 17:04: Prothrombin Time 16.5H, Prothromb Time International Ratio 1.30, Activated Partial Thromboplast Time 30.1, Anion Gap 3L, Glomerular Filtration Rate > 60.0, Calcium Level 8.7L, Total Bilirubin 0.5, Direct Bilirubin 0.2, Aspartate Amino Transf (AST/SGOT) 17, Alanine Aminotransferase (ALT/SGPT) 37, Alkaline Phosphatase 150H, Total Creatine Kinase 26L, Creatine Kinase MB 1.2, Creatine Kinase MB Relative Index 4.62H, Troponin I < 0.02, DK-Cfp-X-Type Natriuretic Peptide 779H, Total Protein 6.1L, Albumin 2.7L, Albumin/Globulin Ratio 0.8, Thyroid Stimulating Hormone (TSH) 0.229L, Free Thyroxine 1.32 09/29/20 17:55: Immature Granulocyte % (Auto) 4.7H, Neutrophils (%) (Auto) 86.4H, Lymphocytes (%) (Auto) 2.0L, Monocytes (%) (Auto) 6.3H, Eosinophils (%) (Auto) 0.0, Basophils (%) (Auto) 0.6, Neutrophils # (Auto) 5.9, Lymphocytes # (Auto) 0.1L, Monocytes # (Auto) 0.4, Eosinophils # (Auto) 0.0, Basophils # (Auto) 0.0, Nucle ated Red Blood Cells % (auto) 0.0 09/29/20 18:02: Blood Gas Bicarbonate Standard 34.0H, Arterial Blood pH 7.486H, Arterial Blood Partial Pressure CO2 47.2H, Arterial Blood Partial Pressure O2 104.2H, Arterial Blood Total CO2 36.3H, Arterial Blood HCO3 34.8H, Arterial Blood Base Excess 10.2H, Arterial Blood Oxygen Saturation 98.0 CBC/BMP Laboratory Tests 09/29/20 17:04 09/29/20 17:55 Microbiology Microbiology 09/29/20 Respiratory Virus Panel (PCR) (JOCELYNE) - Final, Complete Home Medications Scheduled Apixaban (Eliquis) 5 Mg Tablet, 5 MG PO BID Ergocalciferol (Vitamin D2) (Vitamin D2) 50,000 Units Cap, 50,000 UNITS PO QWEEK TUESDAY Fluticasone Propion/Salmeterol (Advair Hfa 230-21 Mcg Inhaler) 12 Gm Hfa.aer.ad, 2 PUFFS PO BID Furosemide (Furosemide) 40 Mg Tablet, 40 MG PO BID Nystatin (Nystatin Oral Susp) 100,000 Unit/1 Ml Oral.susp, 5 ML SSP QID STARTED 09/24/2020 Potassium Chloride (Potassium Chloride) 10 Meq Tab.er.prt, 10 MEQ PO DAILY Prednisone (Prednisone) 10 Mg Tablet, 10 MG PO DAILY Umeclidinium Mak[place] (Incruse Ellipta) 62.5 Mcg Blst.w.dev, 1 PUFF INH DAILY dilTIAZem HCl (Diltiazem 24Hr Cd) 240 Mg Cap.er.24h, 240 MG PO DAILY Allergies Coded Allergies: No Known Allergies (Unverified , 09/13/19) A-FIB/CHADSVASC A-FIB History Current/History of A-Fib/PAF?: Yes Current PO Anticoag Therapy: Yes KRISTIE SHIRLEY MD Sep 29, 2020 23:54
[2020-09-30 01:38] VITALS: BP 116/80
[2020-09-30] MEDS ORDERED: IPRATROPIUM 0.5MG/ALBUTEROL 2.5MG INH SOL UD 3ML (DUONEB) NEB PRN (02:30)
[2020-09-30] MEDS ORDERED: ACETAMINOPHEN TAB 650MG DOSE (2X325MG) PO PRN (02:30)
[2020-09-30] MEDS ORDERED: MAALOX 30 ML SUSP *UDC PO PRN (02:30)
[2020-09-30] MEDS ORDERED: MOM 30ML SUSPENSION UDC PO PRN (02:30)
[2020-09-30 06:00] VITALS: BP 122/84
--- NOTE | 2020-09-30 06:29 | ECGEPIP ---
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: nadine : 1940 Requested By: LAURENT Charlton Order Number: [id number] Reading MD: Key Collier Measurements Intervals [place] Rate: 100 P: NV: 0 QRS: 177 QRSD: 85 T: 97 QT: 354 QTc: 457 Interpretive Statements ATRIAL FIBRILLATION WITH RAPID VENTRICULAR RESPONSE WITH ABERRANT CONDUCTION OR VENTRI VENTRICULAR PREMATURE COMPLEXES POSSIBLE RIGHT VENTRICULAR HYPERTROPHY SEPTAL MYOCARDIAL INFARCTION, PROBABLY OLD NONSPECIFIC ST T WAVE CHANGES BASELINE ARTIFACT MAY AFFECT READING CW 08/08/20 RATE INCREASED RHYTHM CHANGE NONSPECIFIC ST T WAVE CHANGES Electronically Signed on 09-30-2020 6:28:45 EST by Key Collier
[2020-09-30 07:03] LABS: HEMATOCRIT 30.4 % (42.0-52.0); HEMOGLOBIN 9.4 g/dl (13.5-17.5); MEAN CORPUSCULAR HEMOGLOBIN 30.5 pg (27.0-33.0); MEAN CORPUSCULAR HGB CONC 30.9 g/dl (32.0-36.5); MEAN CORPUSCULAR VOLUME 98.7 fl (80.0-96.0); PLATELET COUNT, AUTOMATED 210 10^3/uL (150-450); RED BLOOD COUNT 3.08 10^6/uL (4.30-6.10); WHITE BLOOD COUNT 5.8 10^3/uL (4.0-10.0)
[2020-09-30 07:24] LABS: BLOOD UREA NITROGEN 27 MG/DL (7-18); CALCIUM LEVEL 8.2 MG/DL (8.8-10.2); CARBON DIOXIDE LEVEL 40 MEQ/L (21-32); CHLORIDE LEVEL 96 MEQ/L (98-107); CREATININE FOR GFR 0.71 MG/DL (0.70-1.30); GLOMERULAR FILTRATION RATE > 60.0 (>42); GLUCOSE, FASTING 84 MG/DL (70-100); POTASSIUM SERUM 3.5 MEQ/L (3.5-5.1); SODIUM LEVEL 140 MEQ/L (136-145)
[2020-09-30] MEDS: IPRATROPIUM 0.5MG/ALBUTEROL 2.5MG INH SOL UD 3ML (DUONEB) NEB SCH ×3 (08:00→20:00)
[2020-09-30] MEDS: APIXABAN 5 MG TAB (ELIQUIS) PO SCH ×2 (08:38→21:20)
[2020-09-30] MEDS: FUROSEMIDE 40 MG TAB PO SCH ×2 (08:38→21:21)
[2020-09-30] MEDS: POTASSIUM CHLORIDE 10 MEQ SR TABLET PO SCH (08:38)
[2020-09-30] MEDS: predniSONE 10 MG TAB PO SCH (08:38)
[2020-09-30] MEDS: DOCUSATE SODIUM 100MG CAPSULE PO SCH ×2 (08:40→21:00)
[2020-09-30] MEDS ORDERED: PREVNAR 13 VACCINE SYRINGE IM ONE (09:00)
[2020-09-30] MEDS: ADVAIR HFA 230/21MCG INHALER INH SCH ×2 (09:43→20:03)
--- NOTE | 2020-09-30 11:43 | IPNPDOC ---
Text Note Date of Service The patient was seen on 09/30/20. NOTE Subjective: Patient seen and examined at bedside. No acute overnight events reported. Patient has no new medical complaints this morning. Objective: General: NAD, sitting comfortably in chair, disheveled, chronically ill appearing HEENT: NC/AT, EOMI Lungs: diminished breaths sounds throughout Heart: +S1S2, irregular Abd: soft, NT, +BS Ext: no edema A/P: 80M with PMHx of COPD and A. fib who was sent to the emergency department by his delicatessen manager Dr. Alejandro after being found to be desaturating to the 80s in the clinic during his visit today. Admitted for management of acute on chronic COPD exacerbation and atrial fibrillation with RVR. # Acute on chronic hypoxic respiratory failure - secondary to COPD exacerbation - continue home prednisone - 10 mg daily for now - respiratory treatments - will add antibiotics - supplemental O2 - IS/acapella - PT/OT # Atrial fibrillation with RVR: Currently heart rate 102. questionable compliance with medications. Continue home Cardizem and eliquis. Monitor on telemetry. # HTN Currently normotensive hold home meds. Monitor and titrate # DVT prophylaxis: eliquis as above for afib VS,Fishbone, I+O VS, Fishbone, I+O Laboratory Tests 09/29/20 17:04 09/29/20 17:55 09/30/20 06:46 Vital Signs Date Time Temp Pulse Resp B/P (MAP) Pulse Ox O2 Delivery O2 Flow Rate FiO2 09/30/20 10:02 68 105/62 09/30/20 09:00 2.0 09/30/20 06:00 98.0 18 97 Nasal Cannula I&O- Last 24 Hours up to 6 AM 09/30/20 05:59 Intake Total 0 ml Output Total 0 ml Balance 0 ml ZAID MCCALLUM MD Sep 30, 2020 11:43
[2020-09-30] MEDS: AZITHROMYCIN 250MG TABLET PO SCH (12:07)
[2020-09-30] MEDS: CEFDINIR 300 MG CAP (OMNICEF) PO SCH ×2 (12:07→21:20)
[2020-09-30 14:00] VITALS: BP 107/62
[2020-09-30 22:00] VITALS: BP 116/68
[2020-09-30 23:11] VITALS: BP 99/62
[2020-09-30] MEDS ORDERED: DIGOXIN INJ 0.5 MG/2 ML AMP (J1160) IV ONE (23:15)
[2020-10-01] MEDS: IPRATROPIUM 0.5MG/ALBUTEROL 2.5MG INH SOL UD 3ML (DUONEB) NEB SCH ×4 (02:00→19:31)
[2020-10-01 02:54] VITALS: BP 123/77
[2020-10-01] MEDS ORDERED: DIGOXIN INJ 0.5 MG/2 ML AMP (J1160) IV ONE ×3 (03:00→14:00)
[2020-10-01 03:29] VITALS: BP 108/71
[2020-10-01 06:00] VITALS: BP 138/88
[2020-10-01 06:21] LABS: HEMATOCRIT 31.5 % (42.0-52.0); HEMOGLOBIN 9.6 g/dl (13.5-17.5); MEAN CORPUSCULAR HEMOGLOBIN 30.7 pg (27.0-33.0); MEAN CORPUSCULAR HGB CONC 30.5 g/dl (32.0-36.5); MEAN CORPUSCULAR VOLUME 100.6 fl (80.0-96.0); PLATELET COUNT, AUTOMATED 216 10^3/uL (150-450); RED BLOOD COUNT 3.13 10^6/uL (4.30-6.10); WHITE BLOOD COUNT 7.8 10^3/uL (4.0-10.0)
[2020-10-01 06:50] LABS: BLOOD UREA NITROGEN 25 MG/DL (7-18); CALCIUM LEVEL 8.2 MG/DL (8.8-10.2); CARBON DIOXIDE LEVEL 39 MEQ/L (21-32); CHLORIDE LEVEL 97 MEQ/L (98-107); CREATININE FOR GFR 0.76 MG/DL (0.70-1.30); GLOMERULAR FILTRATION RATE > 60.0 (>42); GLUCOSE, FASTING 100 MG/DL (70-100); POTASSIUM SERUM 3.1 MEQ/L (3.5-5.1); SODIUM LEVEL 143 MEQ/L (136-145)
[2020-10-01] MEDS: ADVAIR HFA 230/21MCG INHALER INH SCH ×2 (07:39→19:30)
[2020-10-01] MEDS ORDERED: POTASSIUM CHLORIDE 10 MEQ SR TABLET PO ONE (08:00)
[2020-10-01] MEDS: POTASSIUM CHLORIDE 10 MEQ SR TABLET PO SCH (08:31)
[2020-10-01] MEDS: CEFDINIR 300 MG CAP (OMNICEF) PO SCH ×2 (08:34→21:07)
[2020-10-01] MEDS: AZITHROMYCIN 250MG TABLET PO SCH (08:34)
[2020-10-01] MEDS: APIXABAN 5 MG TAB (ELIQUIS) PO SCH ×2 (08:34→21:08)
[2020-10-01] MEDS: DOCUSATE SODIUM 100MG CAPSULE PO SCH ×2 (08:34→21:07)
[2020-10-01] MEDS: predniSONE 10 MG TAB PO SCH (08:34)
[2020-10-01] MEDS: FUROSEMIDE 40 MG TAB PO SCH ×2 (08:34→21:08)
[2020-10-01 09:39] LABS: MAGNESIUM LEVEL 1.9 MG/DL (1.8-2.4)
--- NOTE | 2020-10-01 10:43 | IPNPDOC ---
Text Note Date of Service The patient was seen on 10/01/20. NOTE Subjective: Patient seen and examined at bedside. Overnight he was afib with RVR again, treated with loading dose of digoxin 0.5mg IV x 1. Patient has no new medical complaints this morning. Objective: General: NAD, sitting comfortably in chair, disheveled, chronically ill marino earing HEENT: NC/AT, EOMI Lungs: diminished breaths sounds throughout Heart: +S1S2, irregular Abd: soft, NT, +BS Ext: no edema A/P: 80M with PMHx of COPD and A. fib who was sent to the emergency department by his clinical rehab specialist Dr. Alejandro after being found to be desaturating to the 80s in the clinic during his visit today. Admitted for management of acute on chronic COPD exacerbation and atrial fibrillation with RVR. # Acute on chronic hypoxic respiratory failure - secondary to COPD exacerbation - continue home prednisone - 10 mg daily for now - respiratory treatments - will add antibiotics - cefdinir/azithromycin - sputum cultures pending - supplemental O2 - IS/acapella - PT/OT # Atrial fibrillation with RVR - receiving digoxin 0.5mgIV overnight - will continue loading - digoxin 0.25mgIV x1 now, reassess for additional 0.25 dose - start maintenance dose of 0.25mg PO digoxin - will consider increasing cardizem to 300mg daily if needed - a/c with Eliquis # HTN Currently normotensive hold home meds. Monitor and titrate # DVT prophylaxis: eliquis as above for afib Dispo: pending clinical improvement, possible transfer to PCU if HR remains uncontrolled VS,Stevebone, I+O VS, Fishbone, I+O Laboratory Tests 10/01/20 05:58 Vital Signs Date Time Temp Pulse Resp B/P (MAP) Pulse Ox O2 Delivery O2 Flow Rate FiO2 10/01/20 08:33 98 119/63 10/01/20 06:00 97.9 19 99 Nasal Cannula 2.0 I&O- Last 24 Hours up to 6 AM 10/01/20 06:00 Intake Total 1105 ml Output Total 250 ml Balance 855 ml ZAID MCCALLUM MD Oct 01, 2020 10:43
[2020-10-01 14:00] VITALS: BP 109/59
[2020-10-01] MEDS ORDERED: IPRATROPIUM 0.5MG/ALBUTEROL 2.5MG INH SOL UD 3ML (DUONEB) NEB PRN (14:45)
[2020-10-01 15:34] VITALS: BP 120/48
[2020-10-01] MEDS ORDERED: methylPREDNISolone 125MG 2ML VIAL IV SCH (16:00)
[2020-10-01] MEDS ORDERED: SLF 3 ML SYR IV PRN (16:45)
[2020-10-01 20:00] VITALS: BP 130/63
[2020-10-01] MEDS: SLF 3 ML SYR IV SCH (21:08)
--- NOTE | 2020-10-01 23:58 | ECGEPIP ---
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 Last tracing on 09/29/20, 18:00. Heart rate was 100 bpm Electronically Signed on 10-01-2020 23:57:40 EST by Parker Turner
[2020-10-02] VITALS (7 sets, daily range): BP systolic 101–138; BP diastolic 57–80
[2020-10-02] MEDS: IPRATROPIUM 0.5MG/ALBUTEROL 2.5MG INH SOL UD 3ML (DUONEB) NEB SCH ×3 (03:00→07:26)
[2020-10-02 06:05] LABS: HEMATOCRIT 33.2 % (42.0-52.0); HEMOGLOBIN 10.3 g/dl (13.5-17.5); MEAN CORPUSCULAR HEMOGLOBIN 31.5 pg (27.0-33.0); MEAN CORPUSCULAR VOLUME 101.5 fl (80.0-96.0); PLATELET COUNT, AUTOMATED 233 10^3/uL (150-450); RED BLOOD COUNT 3.27 10^6/uL (4.30-6.10); WHITE BLOOD COUNT 9.9 10^3/uL (4.0-10.0)
[2020-10-02] MEDS: SLF 3 ML SYR IV SCH ×3 (06:13→22:16)
[2020-10-02 06:33] LABS: BLOOD UREA NITROGEN 31 MG/DL (7-18); CALCIUM LEVEL 8.7 MG/DL (8.8-10.2); CARBON DIOXIDE LEVEL 37 MEQ/L (21-32); CHLORIDE LEVEL 95 MEQ/L (98-107); CREATININE FOR GFR 0.92 MG/DL (0.70-1.30); GLOMERULAR FILTRATION RATE > 60.0 (>42); GLUCOSE, FASTING 99 MG/DL (70-100); POTASSIUM SERUM 3.3 MEQ/L (3.5-5.1); SODIUM LEVEL 138 MEQ/L (136-145)
[2020-10-02] MEDS: ADVAIR HFA 230/21MCG INHALER INH SCH ×2 (07:26→20:26)
[2020-10-02] MEDS ORDERED: POTASSIUM CHLORIDE 10 MEQ SR TABLET PO ONE (08:00)
[2020-10-02] MEDS: AZITHROMYCIN 250MG TABLET PO SCH (09:08)
[2020-10-02] MEDS: CEFDINIR 300 MG CAP (OMNICEF) PO SCH ×2 (09:08→21:35)
[2020-10-02] MEDS: predniSONE 20 MG TAB PO SCH (09:09)
[2020-10-02] MEDS: FUROSEMIDE 40 MG TAB PO SCH ×2 (09:09→21:35)
[2020-10-02] MEDS: DIGOXIN 0.25 MG TAB PO SCH (09:09)
[2020-10-02] MEDS: diltiaZEM **CD** 180 MG CAP PO SCH (09:10)
[2020-10-02] MEDS: APIXABAN 5 MG TAB (ELIQUIS) PO SCH ×2 (09:10→21:35)
[2020-10-02] MEDS: DOCUSATE SODIUM 100MG CAPSULE PO SCH ×2 (09:10→21:35)
[2020-10-02 09:17] LABS: MAGNESIUM LEVEL 1.9 MG/DL (1.8-2.4); NT-PRO BNP 3280 PG/ML (<450)
[2020-10-02] MEDS: LEVALBUTEROL 1.25 MG/0.5 ML CONCENTRATE NEB INH SCH ×3 (12:00→20:00)
[2020-10-02] MEDS ORDERED: LEVALBUTEROL 1.25 MG/0.5 ML CONCENTRATE NEB INH PRN (12:15)
--- NOTE | 2020-10-02 12:39 | IPNPDOC ---
Text Note Date of Service The patient was seen on 10/02/20. NOTE Subjective: Patient seen and examined at bedside. Transferred to PCU yesterday for persistent afib/RVR. This morning he has no medical complaints. Objective: General: NAD, lying comfortably in bed, disheveled, chronically ill appearing HEENT: NC/AT, EOMI Lungs: diminished breaths sounds throughout Heart: +S1S2, irregular, tachy Abd: soft, NT, +BS Ext: no edema A/P: 80M with PMHx of COPD and A. fib who was sent to the emergency department by his acute specialist Dr. Alejandro after being found to be desaturating to the 80s in the clinic during his visit today. Admitted for management of acute on chronic COPD exacerbation and atrial fibrillation with RVR. # Atrial fibrillation with RVR - continue digoxin 0.25 s/p loading dose 1g - increased cardizem to 300mg daily - a/c with Eliquis - d/w cardiology - c/w pending - 10 IV cardizem if needed # Acute on chronic hypoxic respiratory failure - secondary to COPD exacerbation - continue prednisone 40mg daily - respiratory treatments adjusted to xopenex - continue abx - cefdinir/azithromycin - sputum cultures pending - supplemental O2 - IS/acapella # HTN # DVT prophylaxis: eliquis as above for afib Dispo: pending clinical improvement, improvement in HR VS,Fishbone, I+O VS, Fishbone, I+O Laboratory Tests 10/02/20 05:35 Vital Signs Date Time Temp Pulse Resp B/P (MAP) Pulse Ox O2 Delivery O2 Flow Rate FiO2 10/02/20 12:00 98.2 134 20 135/63 (87) 88 Nasal Cannula 2.0 I&O- Last 24 Hours up to 6 AM 10/02/20 06:00 Intake Total 1850 ml Output Total 1225 ml Balance 625 ml ZAID MCCALLUM MD Oct 02, 2020 12:39
[2020-10-03] VITALS: BP 113/53
[2020-10-03] MEDS: LEVALBUTEROL 1.25 MG/0.5 ML CONCENTRATE NEB INH SCH ×6 (00:02→23:22)
[2020-10-03 04:00] VITALS: BP 119/61
[2020-10-03] MEDS: SLF 3 ML SYR IV SCH ×3 (05:26→21:00)
[2020-10-03 06:02] LABS: HEMATOCRIT 31.8 % (42.0-52.0); HEMOGLOBIN 9.8 g/dl (13.5-17.5); MEAN CORPUSCULAR HEMOGLOBIN 31.1 pg (27.0-33.0); MEAN CORPUSCULAR HGB CONC 30.8 g/dl (32.0-36.5); PLATELET COUNT, AUTOMATED 221 10^3/uL (150-450); RED BLOOD COUNT 3.15 10^6/uL (4.30-6.10); WHITE BLOOD COUNT 9.5 10^3/uL (4.0-10.0)
[2020-10-03 06:33] LABS: BLOOD UREA NITROGEN 33 MG/DL (7-18); CALCIUM LEVEL 8.5 MG/DL (8.8-10.2); CARBON DIOXIDE LEVEL 38 MEQ/L (21-32); CHLORIDE LEVEL 95 MEQ/L (98-107); CREATININE FOR GFR 0.79 MG/DL (0.70-1.30); GLOMERULAR FILTRATION RATE > 60.0 (>42); GLUCOSE, FASTING 102 MG/DL (70-100); POTASSIUM SERUM 3.5 MEQ/L (3.5-5.1); SODIUM LEVEL 139 MEQ/L (136-145)
[2020-10-03] MEDS: ADVAIR HFA 230/21MCG INHALER INH SCH ×2 (07:51→20:25)
[2020-10-03 08:18] VITALS: BP 128/62
[2020-10-03 08:35] LABS: NT-PRO BNP 2270 PG/ML (<450)
[2020-10-03] MEDS: CEFDINIR 300 MG CAP (OMNICEF) PO SCH ×2 (08:39→20:58)
[2020-10-03] MEDS: predniSONE 20 MG TAB PO SCH (08:39)
[2020-10-03] MEDS: APIXABAN 5 MG TAB (ELIQUIS) PO SCH ×2 (08:40→20:59)
[2020-10-03] MEDS: DIGOXIN 0.25 MG TAB PO SCH (08:40)
[2020-10-03] MEDS: AZITHROMYCIN 250MG TABLET PO SCH (08:40)
[2020-10-03] MEDS: diltiaZEM **CD** 180 MG CAP PO SCH (08:40)
[2020-10-03] MEDS: DOCUSATE SODIUM 100MG CAPSULE PO SCH ×2 (08:40→20:59)
[2020-10-03] MEDS: FUROSEMIDE 40 MG TAB PO SCH ×2 (08:41→20:59)
--- NOTE | 2020-10-03 10:39 | IPNPDOC ---
Text Note Date of Service The patient was seen on 10/03/20. NOTE Subjective: Patient seen and examined at bedside.. No acute overnight events reported. Patient has no new medical complaints this morning. Objective: General: NAD, lying comfortably in bed, disheveled, chronically ill appearing HEENT: NC/AT, EOMI Lungs: diminished breaths sounds throughout Heart: +S1S2, irregular, tachy Abd: soft, NT, +BS Ext: no edema A/P: 80M with PMHx of COPD and A. fib who was sent to the emergency department by his apprentice/lineman Dr. Alejandro after being found to be desaturating to the 80s in the clinic during his visit today. Admitted for management of acute on chronic COPD exacerbation and atrial fibrillation with RVR. # Atrial fibrillation with RVR - continue digoxin 0.25mg - continue cardizem to 300mg daily - a/c with Eliquis - d/w cardiology - 10 IV cardizem if needed # Acute on chronic hypoxic respiratory failure - secondary to COPD exacerbation - continue prednisone 40mg daily - respiratory treatments adjusted to xopenex - continue abx - cefdinir/azithromycin - sputum cultures pending - supplemental O2 - IS/acapella - CT chest pending for interim eval # HTN # DVT prophylaxis: eliquis as above for afib Dispo: pending clinical improvement, improvement in HR VS,Zay, I+O VS, Zay, I+O Laboratory Tests 10/03/20 05:51 Vital Signs Date Time Temp Pulse Resp B/P (MAP) Pulse Ox O2 Delivery O2 Flow Rate FiO2 10/03/20 08:40 65 10/03/20 08:39 128/62 10/03/20 08:18 97.8 17 94 Room Air 10/03/20 08:00 2.0 I&O- Last 24 Hours up to 6 AM 10/03/20 05:59 Intake Total 1080 ml Output Total 1675 ml Balance -595 ml ZAID MCCALLUM MD Oct 03, 2020 10:39
[2020-10-03] MEDS ORDERED: ISOVUE-370 76% 100ML VIAL As Ordered ONE (10:59)
--- NOTE | 2020-10-03 11:46 | REP ---
INDICATION: interim eval - abnormal PET scan COMPARISON: None TECHNIQUE: Axial contrast enhanced images from the thoracic inlet to the upper abdomen with coronal and sagittal reformations using 75 ml Isovue 370 intravenous contrast material. This CT examination was performed using the following dose reduction techniques: Automated exposure control, adjustment of mA and/or kv according to the patient's size, and use of iterative reconstruction technique. FINDINGS: Lung wilson demonstrate advanced chronic COPD/emphysematous changes with scattered scarring and small scattered pleural plaques along with bronchiectasis and mild fibrosis. There is a 9 mm noncalcified density with spiculated margins in the left upper lobe (image 27) as well as 15 mm subpleural density in the left lower lobe (image 69). Mild scattered reticulonodular basilar interstitial changes are also identified. Few mediastinal lymph nodes measure up to 12 mm short axis in the precarinal space. No effusion. No pneumothorax. Further evaluation of the mediastinum demonstrates atherosclerotic changes to the thoracic aorta and coronary arteries without aortic aneurysm or dissection. No cardiomegaly or pericardial effusion. Musculoskeletal structures demonstrate age-related degenerative changes without acute osseous abnormality. Limited upper abdomen demonstrates normal bilateral adrenal glands. IMPRESSION: 1. Chronic appearing advanced COPD/emphysematous changes with scattered scarring, bronchiectasis and pleural plaques. 2. Few irregular parenchymal changes as described above are nonspecific. No prior examinations are available for comparison and 3 month short-term follow-up examination should be considered to assess for possible active disease. <Electronically signed by Robert Angulo > 10/03/20 [id number]
[2020-10-03 20:00] VITALS: BP 127/63
[2020-10-03 23:30] VITALS: BP 112/60
[2020-10-04] VITALS: BP 112/58
[2020-10-04] MEDS: LEVALBUTEROL 1.25 MG/0.5 ML CONCENTRATE NEB INH SCH ×6 (03:54→23:17)
[2020-10-04 04:00] VITALS: BP 115/65
[2020-10-04] MEDS: SLF 3 ML SYR IV SCH ×3 (05:01→21:37)
[2020-10-04 05:37] LABS: HEMATOCRIT 31.5 % (42.0-52.0); HEMOGLOBIN 9.7 g/dl (13.5-17.5); MEAN CORPUSCULAR HEMOGLOBIN 31.2 pg (27.0-33.0); MEAN CORPUSCULAR HGB CONC 30.8 g/dl (32.0-36.5); MEAN CORPUSCULAR VOLUME 101.3 fl (80.0-96.0); PLATELET COUNT, AUTOMATED 235 10^3/uL (150-450); RED BLOOD COUNT 3.11 10^6/uL (4.30-6.10); WHITE BLOOD COUNT 8.9 10^3/uL (4.0-10.0)
[2020-10-04 05:59] LABS: BLOOD UREA NITROGEN 36 MG/DL (7-18); CALCIUM LEVEL 8.4 MG/DL (8.8-10.2); CARBON DIOXIDE LEVEL 39 MEQ/L (21-32); CHLORIDE LEVEL 95 MEQ/L (98-107); GLOMERULAR FILTRATION RATE > 60.0 (>42); GLUCOSE, FASTING 102 MG/DL (70-100); POTASSIUM SERUM 3.4 MEQ/L (3.5-5.1); SODIUM LEVEL 140 MEQ/L (136-145)
[2020-10-04 07:38] VITALS: BP 105/59
[2020-10-04] MEDS: ADVAIR HFA 230/21MCG INHALER INH SCH ×2 (07:45→20:31)
[2020-10-04] MEDS: FUROSEMIDE 40 MG TAB PO SCH ×2 (09:00→21:00)
[2020-10-04] MEDS ORDERED: diltiaZEM **CD** 180 MG CAP PO SCH (09:00)
[2020-10-04] MEDS: CEFDINIR 300 MG CAP (OMNICEF) PO SCH ×2 (09:33→20:56)
[2020-10-04] MEDS: predniSONE 20 MG TAB PO SCH (09:33)
[2020-10-04] MEDS: AZITHROMYCIN 250MG TABLET PO SCH (09:34)
[2020-10-04] MEDS: DIGOXIN 0.25 MG TAB PO SCH (09:34)
[2020-10-04] MEDS: APIXABAN 5 MG TAB (ELIQUIS) PO SCH ×2 (09:34→20:53)
[2020-10-04] MEDS: DOCUSATE SODIUM 100MG CAPSULE PO SCH ×2 (09:34→20:53)
--- NOTE | 2020-10-04 09:59 | IPNPDOC ---
Text Note Date of Service The patient was seen on 10/04/20. NOTE Subjective: Patient seen and examined at bedside. Overnight he was tachy again - received cardizem 10 IV this morning. Patient has no new medical complaints this morning. Objective: General: NAD, lying comfortably in bed, disheveled, chronically ill appearing HEENT: NC/AT, EOMI Lungs: diminished breaths sounds throughout Heart: +S1S2, irregular, tachy Abd: soft, NT, +BS Ext: no edema A/P: 80M with PMHx of COPD and A. fib who was sent to the emergency department by his package maker Dr. Alejandro after being found to be desaturating to the 80s in the clinic during his visit today. Admitted for management of acute on chronic COPD exacerbation and atrial fibrillation with RVR. # Atrial fibrillation with RVR - continue digoxin 0.25mg - transition to cardizem BID - a/c with Eliquis - d/w cardiology - 10 IV cardizem if needed # Acute on chronic hypoxic respiratory failure - secondary to COPD exacerbation - continue prednisone 40mg daily - respiratory treatments adjusted to xopenex - continue abx - cefdinir/azithromycin - sputum cultures pending - supplemental O2 - IS/acapella - CT chest noted # HTN # DVT prophylaxis: eliquis as above for afib Dispo: pending clinical improvement, improvement in HR VS,Mandye, I+O VS, Mandye, I+O Laboratory Tests 10/04/20 05:13 Vital Signs Date Time Temp Pulse Resp B/P (MAP) Pulse Ox O2 Delivery O2 Flow Rate FiO2 10/04/20 09:34 104 10/04/20 07:38 96.3 18 105/59 (74) 99 Nasal Cannula 2.0 I&O- Last 24 Hours up to 6 AM 10/04/20 06:00 Intake Total 1410 ml Output Total 2375 ml Balance -965 ml ZAID MCCALLUM MD Oct 04, 2020 09:59
[2020-10-04 11:05] LABS: MAGNESIUM LEVEL 2.3 MG/DL (1.8-2.4)
[2020-10-04 12:00] VITALS: BP 108/55
[2020-10-04 16:00] VITALS: BP 109/55
[2020-10-04 20:00] VITALS: BP 122/60
[2020-10-05] VITALS: BP 127/60
[2020-10-05 04:00] VITALS: BP 121/65
[2020-10-05] MEDS: LEVALBUTEROL 1.25 MG/0.5 ML CONCENTRATE NEB INH SCH ×2 (04:00→07:50)
[2020-10-05 04:37] LABS: HEMATOCRIT 31.4 % (42.0-52.0); HEMOGLOBIN 9.5 g/dl (13.5-17.5); MEAN CORPUSCULAR HGB CONC 30.3 g/dl (32.0-36.5); MEAN CORPUSCULAR VOLUME 102.6 fl (80.0-96.0); PLATELET COUNT, AUTOMATED 255 10^3/uL (150-450); RED BLOOD COUNT 3.06 10^6/uL (4.30-6.10); WHITE BLOOD COUNT 9.2 10^3/uL (4.0-10.0)
[2020-10-05 04:47] LABS: BLOOD UREA NITROGEN 42 MG/DL (7-18); CALCIUM LEVEL 8.6 MG/DL (8.8-10.2); CARBON DIOXIDE LEVEL 40 MEQ/L (21-32); CHLORIDE LEVEL 97 MEQ/L (98-107); CREATININE FOR GFR 0.93 MG/DL (0.70-1.30); GLOMERULAR FILTRATION RATE > 60.0 (>42); GLUCOSE, FASTING 114 MG/DL (70-100); POTASSIUM SERUM 3.8 MEQ/L (3.5-5.1); SODIUM LEVEL 141 MEQ/L (136-145)
[2020-10-05] MEDS: SLF 3 ML SYR IV SCH ×3 (05:44→20:30)
[2020-10-05] MEDS: ADVAIR HFA 230/21MCG INHALER INH SCH ×2 (07:50→19:44)
[2020-10-05] MEDS: TIOTROPIUM INHALER/CAPSULE (SPIRIVA) INH SCH (08:00)
[2020-10-05 08:42] VITALS: BP 115/54
[2020-10-05] MEDS: AZITHROMYCIN 250MG TABLET PO SCH (08:57)
[2020-10-05] MEDS: DIGOXIN 0.25 MG TAB PO SCH (08:57)
[2020-10-05] MEDS: APIXABAN 5 MG TAB (ELIQUIS) PO SCH ×2 (08:57→20:28)
[2020-10-05] MEDS: CEFDINIR 300 MG CAP (OMNICEF) PO SCH ×2 (08:57→20:28)
[2020-10-05] MEDS: DOCUSATE SODIUM 100MG CAPSULE PO SCH ×2 (08:58→20:29)
[2020-10-05] MEDS: FUROSEMIDE 40 MG TAB PO SCH ×2 (08:58→20:29)
[2020-10-05] MEDS: diltiaZEM **CD** 180 MG CAP PO SCH (08:58)
[2020-10-05] MEDS: predniSONE 10 MG TAB PO SCH (09:07)
--- NOTE | 2020-10-05 10:29 | IPNPDOC ---
Text Note Date of Service The patient was seen on 10/05/20. NOTE Subjective: Patient seen and examined at bedside. Overnight he was tachy again - received cardizem 10 IV this morning. Patient has no new medical complaints this morning. Objective: General: NAD, lying comfortably in bed, disheveled, chronically ill appearing HEENT: NC/AT, EOMI Lungs: diminished breaths sounds throughout Heart: +S1S2, irregular, tachy Abd: soft, NT, +BS Ext: no edema A/P: 80M with PMHx of COPD and A. fib who was sent to the emergency department by his crusher screen repairer Dr. Alejandro after being found to be desaturating to the 80s in the clinic during his visit today. Admitted for management of acute on chronic COPD exacerbation and atrial fibrillation with RVR. # Atrial fibrillation with RVR - continue digoxin 0.25mg - transitioned to 360 cardizem daily - a/c with Eliquis - d/w cardiology - 10 IV cardizem if needed # Acute on chronic hypoxic respiratory failure - secondary to COPD exacerbation - continue prednisone 40mg daily - respiratory treatments adjusted to xopenex - continue abx - cefdinir/azithromycin - sputum cultures pending - supplemental O2 - IS/acapella - CT chest noted # HTN # DVT prophylaxis: eliquis as above for afib Dispo: pending clinical improvement, improvement in HR, hoping for discharge in 24 hours if HR remains stable VS,Zay, I+O VS, Zay, I+O Laboratory Tests 10/05/20 04:07 Vital Signs Date Time Temp Pulse Resp B/P (MAP) Pulse Ox O2 Delivery O2 Flow Rate FiO2 10/05/20 08:58 108 115/54 10/05/20 08:42 97.0 20 91 Nasal Cannula 2.0 I&O- Last 24 Hours up to 6 AM 10/05/20 05:59 Intake Total 750 ml Output Total 1525 ml Balance -775 ml ZAID MCCALLUM MD Oct 05, 2020 10:29
[2020-10-05 11:31] LABS: DIGOXIN LEVEL 1.8 NG/ML (0.5-2.0)
[2020-10-05 12:00] VITALS: BP 123/61
[2020-10-05 16:23] VITALS: BP 122/60
[2020-10-05 20:00] VITALS: BP 116/56
[2020-10-06] VITALS: BP 112/71
[2020-10-06 04:00] VITALS: BP 133/63
[2020-10-06] MEDS: SLF 3 ML SYR IV SCH ×2 (05:18→14:00)
[2020-10-06 06:47] LABS: HEMOGLOBIN 9.6 g/dl (13.5-17.5); MEAN CORPUSCULAR HEMOGLOBIN 31.5 pg (27.0-33.0); MEAN CORPUSCULAR VOLUME 104.9 fl (80.0-96.0); PLATELET COUNT, AUTOMATED 223 10^3/uL (150-450); RED BLOOD COUNT 3.05 10^6/uL (4.30-6.10); WHITE BLOOD COUNT 9.3 10^3/uL (4.0-10.0)
[2020-10-06 07:13] LABS: BLOOD UREA NITROGEN 35 MG/DL (7-18); CALCIUM LEVEL 8.6 MG/DL (8.8-10.2); CARBON DIOXIDE LEVEL 42 MEQ/L (21-32); CHLORIDE LEVEL 98 MEQ/L (98-107); CREATININE FOR GFR 0.82 MG/DL (0.70-1.30); GLOMERULAR FILTRATION RATE > 60.0 (>42); GLUCOSE, FASTING 93 MG/DL (70-100); POTASSIUM SERUM 3.5 MEQ/L (3.5-5.1); SODIUM LEVEL 139 MEQ/L (136-145)
[2020-10-06 08:00] VITALS: BP 117/58
[2020-10-06] MEDS: TIOTROPIUM INHALER/CAPSULE (SPIRIVA) INH SCH (08:02)
[2020-10-06] MEDS: ADVAIR HFA 230/21MCG INHALER INH SCH (08:02)
[2020-10-06 10:25] VITALS: BP 117/58
[2020-10-06] MEDS: diltiaZEM **CD** 180 MG CAP PO SCH (10:25)
[2020-10-06] MEDS: APIXABAN 5 MG TAB (ELIQUIS) PO SCH (10:26)
[2020-10-06] MEDS: FUROSEMIDE 40 MG TAB PO SCH (10:26)
[2020-10-06] MEDS: AZITHROMYCIN 250MG TABLET PO SCH (10:26)
[2020-10-06] MEDS: DIGOXIN 0.25 MG TAB PO SCH (10:26)
[2020-10-06] MEDS: CEFDINIR 300 MG CAP (OMNICEF) PO SCH (10:27)
[2020-10-06] MEDS: DOCUSATE SODIUM 100MG CAPSULE PO SCH (10:27)
[2020-10-06] MEDS: predniSONE 10 MG TAB PO SCH (10:27)
[2020-10-06] MEDS ORDERED: DIGO0.253 PO (11:26)
[2020-10-06] MEDS ORDERED: CARD180C4 PO (11:26)
--- NOTE | 2020-10-06 14:32 | DS.PDOC ---
Discharge Summary General Date of Admission Sep 29, 2020 at 23:51 Date of Discharge 10/06/20 Specialist/Consultants [facility] Discharge Summary PROCEDURES PERFORMED DURING STAY: [None]. ADMITTING DIAGNOSES: #rapid afib SECONDARY DIAGNOSES: #severe COPD - chronic hypoxic respiratory failure #afib #HTN COMPLICATIONS/CHIEF COMPLAINT: Copd With Acute Exacerbation. HISTORY OF PRESENT ILLNESS: 80-year-old male history of COPD and A. fib who was sent to the emergency department by his assistant product manager Dr. Alejandro after being found to be desaturating to the 80s in the clinic during his visit today. Patient has COPD and is on baseline 2 L of oxygen at home and had to be increased to [address] Alejandro in the clinic and saturated to around 85%. In the emergency department patient received nebulized treatments with improvement in his wheezing and relief reported by the patient for shortness of breath he is saturating at the time he was seen at 92% on 2 L of oxygen. In the emergency department patient was found to have A. fib with a rapid response heart rate between 100 -120 but at times reaching higher. Patient unsure if he is compliant fully with medications at home. He lives home with his . HOSPITAL COURSE: 80M with PMHx of COPD and A. fib who was sent to the emergency department by his assistant product manager Dr. Alejandro after being found to be desaturating to the 80s in the clinic during his visit today. Admitted for management of acute on chronic COPD exacerbation and atrial fibrillation with RVR. # Atrial fibrillation with RVR - started digoxin 0.25mg - loaded with 1g - transitioned to 360 cardizem daily - a/c with Eliquis - d/w cardiology # Acute on chronic hypoxic respiratory failure - secondary to COPD exacerbation - respiratory treatments adjusted to xopenex - continue abx - cefdinir/azithromycin - completed 6 days - supplemental O2 - IS/acapella DISCHARGE MEDICATIONS: Please see below. ALLERGIES: Please see below. PHYSICAL EXAMINATION ON DISCHARGE: VITAL SIGNS: Please see below. General: NAD, lying comfortably in bed, disheveled, chronically ill appearing HEENT: NC/AT, EOMI Lungs: diminished breaths sounds throughout Heart: +S1S2, irregular, tachy Abd: soft, NT, +BS Ext: no edema LABORATORY DATA: Please see below. ACTIVITY: [As tolerated]. DISCHARGE INSTRUCTIONS: 1. follow up PCP in 3-5 days 2. follow up cardiology in 3-10 days 3. follow up pulmonology as scheduled DISCHARGE CONDITION: [Stable]. TIME SPENT ON DISCHARGE: 35 minutes. Vital Signs/I&Os Vital Signs Date Time Temp Pulse Resp B/P (MAP) Pulse Ox O2 Delivery O2 Flow Rate FiO2 10/06/20 12:00 2.0 10/06/20 10:26 73 10/06/20 10:25 117/58 10/06/20 08:00 97.6 20 97 Nasal Cannula I&O- Last 24 Hours up to 6 AM 10/06/20 05:59 Intake Total 860 ml Output Total 1600 ml Balance -740 ml Laboratory Data Labs 24H Laboratory Tests 2 10/06/20 06:21: Nucleated Red Blood Cells % (auto) 0.5H, Anion Gap , Glomerular Filtration Rate > 60.0, Calcium Level 8.6L CBC/BMP Laboratory Tests 10/06/20 06:21 Microbiology Microbiology 09/29/20 Respiratory Virus Panel (PCR) ([facility]) - Final, Complete Discharge Medications Scheduled Apixaban (Eliquis) 5 Mg Tablet, 5 MG PO BID, (Reported) Digoxin (Digoxin) 250 Mcg Tablet, 0.25 MG PO DAILY Diltiazem Hcl (Cardizem Cd) 180 Mg Cap.er.24h, 360 MG PO DAILY Ergocalciferol (Vitamin D2) (Vitamin D2) 50,000 Units Cap, 50,000 UNITS PO QWEEK, (Reported) TUESDAY Fluticasone Propion/Salmeterol (Advair Hfa 230-21 Mcg Inhaler) 12 Gm Hfa.aer.ad, 2 PUFFS PO BID, (Reported) Furosemide (Furosemide) 40 Mg Tablet, 40 MG PO BID, (Reported) Nystatin (Nystatin Oral Susp) 100,000 Unit/1 Ml Oral.susp, 5 ML SSP QID, (Reported) STARTED 09/24/2020 Potassium Chloride (Potassium Chloride) 10 Meq Tab.er.prt, 10 MEQ PO DAILY, (Reported) Prednisone (Prednisone) 10 Mg Tablet, 10 MG PO DAILY, (Reported) Umeclidinium [place] (Incruse Ellipta) 62.5 Mcg Blst.w.dev, 1 PUFF INH DAILY, (Reported) Allergies Coded Allergies: No Known Allergies (Unverified , 09/13/19) ZAID MCCALLUM MD 11, 2021 14:32
== END 2020-10-06 19:20 | disposition home or self-care (01) | DRG 189 ==
LOC: M ED 16:50 → M ED INP 23:51 → M MSPAV 09-30 01:36 → M PCU 10-01 15:29
PROVIDERS: ADMIT Family Medicine; ATTEND Internal Medicine
DX: J96.21 Acute and chronic respiratory failure with hypoxia (principal); J44.1 Chronic obstructive pulmonary disease with (acute) exacerbation; I48.91 Unspecified atrial fibrillation; I10 Essential (primary) hypertension; Z79.899 Other long term (current) drug therapy; Z87.891 Personal history of nicotine dependence

== ENCOUNTER → 2021-05-08 | Outpatient (CLI) | payer MEDICARE ==
[~2021-05-08] MED LIST changes: +CARD180C4 PO; +DIGO0.253 PO; +DILT240C83 PO; +ERGO500029 PO; +FURO40TA2 PO; +LISI10TA22 PO; -LISI10TA4 PO; +NYST50SS SSP; +POTA10TA16 PO; +PRED10PA PO; -VITA50005 PO
--- NOTE | 2021-05-11 16:01 | SLEEPCENT ---
DATE: 05/08/2021 ORDERED BY: Cuauhtemoc Alejandro MD Nocturnal polysomnography was performed for evaluation of sleep physiology in this patient with a history of abnormal nocturnal oximetry tracing. Eight hours and 20 minutes of data were reviewed. There were 252 minutes of sleep identified. Sleep latency was short at 12 minutes. REM latency was not achieved. Overall sleep architecture showed fragmentation and poor progression. Sleep efficiency was 51.8%. The electrocardiogram showed an irregular supraventricular rhythm with an average heart rate of 76 beats per minute. EEG showed reasonably normal waveforms for wake and sleep. Some coarsening was noted in the background. There were 183 respiratory events identified of 10 seconds in duration or greater for an apnea-hypopnea index of 43.6. Having clearly established the presence of obstructive sleep apnea syndrome early in testing, the study was stopped at 2:00 a.m. for the application of pressure therapy. The patient was fit with a ResMed F20 full face mask of medium size, 4 cm of water pressure were applied at the circuit and the lights were again extinguished. Throughout the remaining hours of testing, pressure titration was performed. Persistence of respiratory events prompted increases in pressure and despite optimal mask fit and minimal air leak, the patient required a change to a bilevel device. Best sleep was seen on a bilevel device inspiratory 16 over expiratory of 10. Despite optimal pressure, the patient displayed oxygen desaturations requiring the addition of supplemental oxygen. IMPRESSIONS: Severe obstructive sleep apnea syndrome (G47.33). Apnea-hypopnea index 43.6. RECOMMENDATION: Initiation of bilevel pressure therapy at an inspiratory pressure of 16 with an expiratory pressure of 10 should be sufficient to address the patient's obstructive respiratory events. Supplemental oxygen at 2 liters per minute will be necessary to address persistent oxygen desaturations. Given the limited time for titration, if the patient's symptoms are not resolving, referral [facility] for a second full night of titration may be helpful. cc: Nel Rangel NP
== END ==
LOC: M SLEEP 20:00
PROVIDERS: ATTEND Internal Medicine Pulmonary Disease
DX: G47.33 Obstructive sleep apnea (adult) (pediatric) (principal)